=== PATIENT | male | born 1955 | race Caucasian/White ===

== ENCOUNTER 2017-11-20 01:33 | Observation (INO) | payer OTHER ==
[~2017-11-20] VITALS: Ht 170.2 cm; Wt 79.0 kg
[2017-11-20] MEDS ORDERED: SODIUM CHLORIDE 0.9% 1000ML 1,000 ML IV STA (01:55)
[2017-11-20] MEDS ORDERED: HYDR25TA4 PO (01:58)
[2017-11-20] MEDS ORDERED: ASPI325T39 PO (01:58)
[2017-11-20] MEDS ORDERED: METF-384 PO (01:58)
[2017-11-20] MEDS ORDERED: ATOR-24 PO (01:58)
[2017-11-20] MEDS ORDERED: OMEG10007 PO (01:58)
--- NOTE | 2017-11-20 02:02 | EMERGENCY ROOM VISIT NOTE ---
History Report prepared by Deanneibbutch: Thomas Guerrero Under the Supervision of: Dr. Deepthi Selby M.D. First contact with patient: 01:47 Chief Complaint: SYNCOPE Stated Complaint: PASSED OUT AND HIT HEAD History of Present Illness The patient is a 62 year old male who presents to the Emergency Room with complaints of a single syncopal episode at 0030 this morning. The patient states that he was asleep on the couch when he got up to go to the kitchen, noting "heartburn" and he suddenly became lightheaded and passed out. He notes that there is glass in his hair with superficial scalp abrasions after breaking the oven door glass during the fall. He is not sure if he hit his head. He reports having heartburn prior to passing out. He currently has heartburn that is coming and going. He has a history of similar heartburn for years. He denies any recent travel. He denies any history of blood clots or personal history of CAD. He has a family history of CAD. He denies any history of smoking. He states that he feels dry in his mouth. He denies any headache. He notes that he felt lightheaded while here in the ED. He denies any motion or spinning sensations. He denies any history of syncope. He denies any vomiting, diarrhea, back pain, neck pain, or abdominal pain. He recently had a colonoscopy two weeks ago. He denies any history of kidney problems. Source of History: patient Onset: at 0030 this morning Position: other (general ) Quality: other (syncope) Timing: other (episodic ) Associated Symptoms: + LOC, No headache, No neck pain, No vomiting, No abdominal pain, No back pain, No diarrhea Note: He notes lightheadedness and heartburn. He denies any recent trips. He denies any motion or spinning sensations. Review of Systems See HPI for pertinent positives & negatives. A total of 10 systems reviewed and were otherwise negative. Past Medical & Surgical Medical Problems: (1) Diabetes (2) HTN (hypertension) (3) Trigger finger Surgical Problems: (1) H/O hand surgery (2) History of hernia surgery Family History Cancer Diabetes mellitus Heart disease Hypertension Social History Smoking Status: Never Smoker Smokeless Tobacco Use: No Alcohol Use: occasionally Drug Use: none Marital Status: Housing Status: lives with significant other Occupation Status: employed Current/Historical Medications Scheduled Aspirin (Aspirin Ec), 325 MG PO DAILY Atorvastatin (Lipitor), 40 MG PO DAILY Fish Oil ([place]-3), 1 CAP PO DAILY Hydrochlorothiazide (Hctz), 25 MG PO DAILY Metformin Hcl (Glucophage), 1,000 MG PO BID Allergies Coded Allergies: HEIDI Inhibitors (Verified Allergy, Unknown, cough, 11/20/17) Physical Exam Vital Signs Date Time Temp Pulse Resp B/P (MAP) Pulse Ox O2 Delivery O2 Flow Rate FiO2 11/20/17 04:37 103 18 161/92 97 Room Air 11/20/17 04:27 104 16 177/93 97 Room Air 11/20/17 03:45 101 18 155/98 11/20/17 02:46 91 148/89 155/95 154/91 11/20/17 02:21 92 18 150/90 95 Room Air 11/20/17 01:57 86 11/20/17 01:38 36.3 91 18 151/90 97 Room Air Physical Exam Vital signs reviewed. General: Well-appearing, in no significant distress. HEENT: No scleral icterus, PERRLA, neck supple. Several mild abrasions to the scalp. Cardiovascular: Regular rate and rhythm, no extra sounds. Pulmonary: Clear to auscultation bilaterally, normal work of breathing. Abdomen: Soft, nontender, nondistended, positive bowel sounds. Musculoskeletal: Atraumatic, no peripheral edema. Nontender to palpation of the cervical, thoracic and lumbar spines. Neurologic: Patient awake alert and oriented x 3, full strength in all 4 extremities. Cranial nerves 2 through 12 grossly intact. Skin: Warm, dry, no rash Medical Decision & Procedures ER Provider Diagnostic Interpretation: Radiology results as stated below per my review and interpretation: CHEST XR: Normal Radiology results as stated below per my review and radiologist interpretation: CT HEAD: No acute hemorrhage, hydrocephalus, or mass effect. Radiologist: Cindy Mota MD Study ready at 02:18 and initial results transmitted at 02:20 CTA CHEST: No pulmonary embolism. No acute aortic findings. No cardiomegaly. No pericardial effusion. No consolidation or pleural effusion. Radiologist: Cindy Mota MD Study ready at 03:47 and initial results transmitted at 04:09 Laboratory Results Test 11/20/17 01:55 11/20/17 02:50 Immature Granulocyte % (Auto) 0.1 % White Blood Count 8.85 K/uL (4.8-10.8) Red Blood Count 5.17 M/uL (4.7-6.1) Hemoglobin 15.2 g/dL (14.0-18.0) Hematocrit 44.3 % (42-52) Mean Corpuscular Volume 85.7 fL (80-100) Mean Corpuscular Hemoglobin 29.4 pg (25-34) Mean Corpuscular Hemoglobin Concent 34.3 g/dl (32-36) Platelet Count 211 K/uL (130-400) Mean Platelet Volume 10.2 fL (7.4-10.4) Neutrophils (%) (Auto) 73.8 % Lymphocytes (%) (Auto) 17.4 % Monocytes (%) (Auto) 5.9 % Eosinophils (%) (Auto) 2.5 % Basophils (%) (Auto) 0.3 % Neutrophils # (Auto) 6.53 K/uL (1.4-6.5) Lymphocytes # (Auto) 1.54 K/uL (1.2-3.4) Monocytes # (Auto) 0.52 K/uL (0.11-0.59) Eosinophils # (Auto) 0.22 K/uL (0-0.5) Basophils # (Auto) 0.03 K/uL (0-0.2) Immature Granulocyte # (Auto) 0.01 K/uL (0.00-0.02) D-Dimer 3690 ug/L FEU (0-500) Total Bilirubin 0.3 mg/dl (0.2-1) Direct Bilirubin < 0.1 mg/dl (0-0.2) Aspartate Amino Transf (AST/SGOT) 13 U/L (15-37) Alanine Aminotransferase (ALT/SGPT) 29 U/L (12-78) Alkaline Phosphatase 77 U/L (45-117) Total Protein 7.3 gm/dl (6.4-8.2) Albumin 4.0 gm/dl (3.4-5.0) Urine Color YELLOW Urine Appearance CLEAR (CLEAR) Urine pH 5.0 (4.5-7.5) Urine Specific [place] 1.023 (1.000-1.030) Urine Protein NEG (NEG) Urine Glucose (UA) NEG (NEG) Urine Ketones 2+ (NEG) Urine Occult Blood TRACE (NEG) Urine Nitrite NEG (NEG) Urine Bilirubin NEG (NEG) Urine Urobilinogen NEG (NEG) Urine Leukocyte Esterase NEG (NEG) Urine WBC (Auto) 1-5 /hpf (0-5) Urine RBC (Auto) 0-4 /hpf (0-4) Urine Hyaline Casts (Auto) 5-10 /lpf (0-5) Urine Epithelial Cells (Auto) 5-10 /lpf (0-5) Urine Bacteria (Auto) NEG (NEG) Laboratory results per my review. Medications Administered Medications (Trade) Dose Ordered Sig/Grisel Route Start Time Stop Time Status Last Admin Dose Admin Sodium Chloride 1,000 ml @ 125 mls/hr Q8H STAT IV 11/20/17 01:55 11/20/17 06:22 DC 11/20/17 02:48 125 MLS/HR Potassium Chloride (Klor-Con M10) 40 meq NOW STAT PO 11/20/17 04:47 11/20/17 04:51 DC 11/20/17 04:59 40 MEQ ECG Per My Interpretation Indication: syncope Rate (beats per minute): 89 Rhythm: sinus rhythm Findings: 1st degree AV block, nonspecific-ST abn (Inferior), no acute ischemic change, no ectopy ED Course 0152: Past medical records reviewed. The patient was evaluated in room B4B. A complete history and physical examination was performed. 0155: Ordered Sodium Chloride 1,000 ml @ 125 mls/hr IV 0308: I reassessed the patient at this time. The patient agreed to have a CTA. 0429: I [facility] discussed the patient's case. [facility]. 0431: I reassessed the patient at this time. I discussed the results and treatment plan with the patient. I answered all pertaining questions that he had. He expressed understanding and verbalized agreement. The patient will be further evaluated. Medical Decision Differential diagnosis: Etiologies such as vasovagal event, infection, hypoglycemia, electrolyte abnormalities, cardiac sources, intracerebral event, toxicologic, neurologic, as well as others were entertained. This pt was evaluated and appeared to be in no distress. PE is significant for only abrasions to the scalp. EKG is NSR. Pt was hydrated with NSS. Orthostatics are negative. Lab work reveals an elevated ddimer, neg cardiac enzymes. CT head is negative. CXR is clear. CTA of chest was ordered and is negative for PE. Pt was advised of the findings. As he is diabetic with HTN, GERD symptoms and sudden syncopal episode, it is in the pt's best interest to have stay in hospital for further evaluation. Pt and were made aware of the plan and agree. Dr Gillespie was consulted of [facility] hospitalist service. Medication Reconcilliation Current Medication List: was personally reviewed by me Blood Pressure Screening Patient's blood pressure: Elevated blood pressure referred to hospitalist Consults Time Called: [phone] Consulting Physician: [facility]illespie [facility] Return[facility] Call: [phone] [facility]illespie [facility] We discussed the patient's case. The patient will be evaluated by the [facility] Hospital[facility] Group for further management. Impression Primary Impression: Syncope Additional Impression: Chest pain Scribe Attestation The scribe's documentation has been prepared under my direction and personally reviewed by me in its entirety. I confirm that the note above accurately reflects all work, treatment, procedures, and medical decision making performed by me. Departure Information Dispostion Being Evaluated By Hospitalist Referrals Al Quispe M.D.(VIRGEN) (PCP) Patient Instructions My [facility] Health Problem Qualifiers
[2017-11-20 02:15] LABS: BASO % 0.3 %; BASO ABS # 0.03 K/uL (0-0.2); EOS % 2.5 %; EOS ABS # 0.22 K/uL (0-0.5); HEMATOCRIT 44.3 % (42-52); HEMOGLOBIN 15.2 g/dL (14.0-18.0); IG# 0.01 K/uL (0.00-0.02); LYMPH % 17.4 %; LYMPH ABS # 1.54 K/uL (1.2-3.4); MEAN CELL VOLUME 85.7 fL (80-100); MEAN CORPUSCULAR HEMOGLOBIN 29.4 pg (25-34); MEAN CORPUSCULAR HGB CONC 34.3 g/dl (32-36); MEAN PLATELET VOLUME 10.2 fL (7.4-10.4); MONO % 5.9 %; MONO ABS # 0.52 K/uL (0.11-0.59); NEUT % 73.8 %; NEUT ABS # 6.53 K/uL (1.4-6.5); PLATELET COUNT 211 K/uL (130-400); RED CELL DISTRIBUTION WIDTH CV 13.2 % (11.5-14.5); RED CELL DISTRIBUTION WIDTH SD 41.4 fL (36.4-46.3); WHITE BLOOD COUNT 8.85 K/uL (4.8-10.8)
[2017-11-20 02:36] LABS: ALT/SGPT 29 U/L (12-78); AST/SGOT 13 U/L (15-37); BLOOD UREA NITROGEN 11 mg/dl (7-18); CALCIUM 8.9 mg/dl (8.5-10.1); CARBON DIOXIDE 28 mmol/L (21-32); CREATININE 1.01 mg/dl (0.60-1.40); GLUCOSE 144 mg/dl (70-99); SODIUM 139 mmol/L (136-145)
[2017-11-20 02:41] LABS: ALKALINE PHOSPHATASE 77 U/L (45-117); TOTAL PROTEIN 7.3 gm/dl (6.4-8.2)
[2017-11-20] MEDS ORDERED: OPTIRAY 320 IV PRN (03:15)
[2017-11-20] MEDS ORDERED: POTASSIUM CHLORIDE 10 MEQ TABCR PO STA (04:47)
[2017-11-20] MEDS ORDERED: METOPROLOL TARTRATE 25 MG TAB PO ONE (05:04)
[2017-11-20] MEDS ORDERED: ACETAMINOPHEN 325 MG TAB PO PRN (05:15)
[2017-11-20] MEDS ORDERED: ONDANSETRON INJ 2 MG/ML 2 ML VIAL IV PRN (05:15)
[2017-11-20] MEDS ORDERED: DEXTROSE 50% 50 ML SYR IV PRN (05:45)
[2017-11-20] MEDS ORDERED: GLUCAGON FOR INJ 1 MG VIAL SQ PRN (05:45)
[2017-11-20] MEDS ORDERED: IV FLUIDS COMPLETED PRN (05:45)
[2017-11-20] MEDS ORDERED: GLUCOSE 10 TABS/TUBE PO PRN (05:45)
[2017-11-20] MEDS ORDERED: GLUCOSE 40% GEL 15 GM TUBE PO PRN (05:45)
--- NOTE | 2017-11-20 05:45 | HISTORY & PHYSICAL EXAMINATION ---
DATE OF ADMISSION: 11/20/2017 PRIMARY CARE PHYSICIAN: Dr. Quispe. CHIEF COMPLAINT: Syncopal episode. HISTORY OF PRESENT COMPLAINT: He is a 62-year-old male, significant past medical history of diabetes type 2, hyperlipidemia and hypertension, apparently watching TV late in the night yesterday, and when he was about to go to bed, he was going toward the kitchen and all of a sudden he felt dizzy and he ended up falling on the floor. He lost consciousness for a few seconds. He hit the stove in the kitchen with glass front and that was broken. From that point, he was taken to the Emergency Room. When asking question, he complains to have dizziness since the event and the dizziness has been ongoing. He has not had any syncopal episode before and he did not have any warning symptoms except dizziness before the fall. He denies any chest pain, palpitation, any shortness of breath, any headache, blurred vision before the fall, any numbness or tingling, any abdominal pain, nausea or vomiting. Notes he does have reflux symptoms and he did have reflux symptoms later on after the event. In the Emergency Room, he was hemodynamically stable. He was feeling better and apparent test came back negative except D-dimer was high, but CTA was negative. From that point, he was admitted to telemetry unit for continuation of care. PAST MEDICAL HISTORY: Significant for type 2 diabetes, hyperlipidemia and hypertension. PAST SURGICAL HISTORY: Significant for repair of umbilical hernia and repair of recurrent inguinal hernia and vasectomy. FAMILY HISTORY: No significant family history. No diabetes and/or hypertension. Mother though has asthma. SOCIAL HISTORY: He is . He lives with his . He uses alcohol socially but does not smoke. ALLERGIES: TO HEIDI INHIBITOR. MEDICATIONS: As an outpatient, he has been taking fish oil as directed, metformin 1000 mg b.i.d., aspirin 325 mg daily, atorvastatin 40 mg daily and hydrochlorothiazide 25 mg daily. REVIEW OF SYSTEMS: Other systemic review unremarkable except as mentioned in history of present complaint. PHYSICAL EXAMINATION: GENERAL: On examination in the Emergency Room, he was not in any acute distress. VITAL SIGNS: Temperature 36.3, pulse is 91, blood pressure 151/90, saturation 97% on room air. HEENT: Unremarkable. NECK: Supple, no JVD, no bruit. CHEST: Clear to auscultate bilaterally. HEART: S1, S2 regular. ABDOMEN: Soft, benign, nontender, no organomegaly. Bowel sounds present. EXTREMITIES: Negative for any edema. MUSCULOSKELETAL: Did not show any acute arthritis involving any joint. CENTRAL NERVOUS SYSTEM: Alert, awake, oriented x3. No focal sensory and/or motor deficit appreciated. LABORATORY DATA: Noted today white count was 8.85, H&H 15.2/44.3, platelet was 211. Sodium 139, potassium 3.0, chloride 102, carbon dioxide 28, BUN 11, creatinine 1.01, random glucose 144. LFTs normal. Troponin less than 0.015. D-dimer is elevated to 3619. UA examination unremarkable. EKG pending. Chest x-ray, CT of the head and CTA were unremarkable as I was reported. IMPRESSION AND PLAN: 1. Syncopal episode with fall and minor head injury. The patient will be admitted to telemetry unit. He has high blood pressure. The causes could be secondary to high blood pressure and/or dehydration.Cardiac Arrhythmia needs to be ruled out as well. He has not been drinking enough fluids throughout the whole day. He was started on IV fluid, normal saline, and he will have serial cardiac enzymes, echocardiogram and also carotid ultrasound to rule out stenosis. He is going to be evaluated by neurologist while in the hospital. 2. Hypertension. Blood pressure remains on the upper side, may have had very high blood pressure with dizzy spells. We will add metoprolol on top of hydrochlorothiazide. 3. Hypokalemia, likely secondary to hydrochlorothiazide. We will continue hydrochlorothiazide. May have to add replacement of potassium when he goes home. 4. Diabetes type 2, has been on metformin. We will hold metformin in the hospital, put him on sliding scale coverage, check hemoglobin A1c. 5. Esophageal reflux with reflux symptoms. We will give proton pump inhibitor for reflux symptoms. 6. Deep venous thrombosis prophylaxis with Lovenox. 7. Code status. Full code. In my clinical assessment, the beneficiary meets criteria as per CMS for 2-midnight stay in the hospital. MTDD
[2017-11-20 06:15] VITALS: BP 171/96; PULSE 104; TEMP 36.5; O2SAT 95; Ht 170.2 cm; Wt 79.0 kg
[2017-11-20] MEDS: NSS + 20MEQ KCL 1000ML 1,000 ML IV SCH ×2 (06:47→17:27)
[2017-11-20] MEDS ORDERED: PNEUMOCOCCAL ADMINISTRATION CHARGE ONE (07:00)
[2017-11-20] MEDS ORDERED: PNEUMOCOCCAL POLYSACCHARIDES 25 MCG/0.5 ML VIAL/SYR IM. ONE (07:00)
--- NOTE | 2017-11-20 07:54 | DIAGNOSTIC IMAGING REPORT ---
CHEST ONE VIEW PORTABLE CLINICAL HISTORY: syncope COMPARISON STUDY: No previous studies for comparison. FINDINGS: The cardiac and mediastinal contours are normal. There is no evidence of focal pulmonary consolidation. There is no evidence of failure. No pleural effusions are visualized.[ There are minimal linear atelectatic changes at the left lung base. IMPRESSION: No active disease in the chest. Electronically signed by: Chauncey Centeno M.D. 11/20/2017 7:52 AM Dictated Date/Time: 11/20/2017 7:52 AM
--- NOTE | 2017-11-20 08:23 | DIAGNOSTIC IMAGING REPORT ---
CT HEAD WITHOUT CONTRAST (CT) CLINICAL HISTORY: Head pain.] Injury. Syncope. COMPARISON STUDY: No previous studies for comparison. TECHNIQUE: Axial CT of the brain is performed from the vertex to the skull base. IV contrast was not administered for this examination. A dose lowering technique was utilized adhering to the principles of ALARA. CT DOSE: 614.27 mGy.cm FINDINGS: No intra or extra-axial mass lesions are visualized. There is no CT evidence of acute cortical infarction. There is no evidence of midline shift. There is no acute hemorrhage. No calvarial fractures are visualized. There are minimal white matter hypodensities likely on a small vessel basis. There is cerebellar atrophy. There is no evidence of pathologic ventricular dilatation. There is no evidence of acute sinusitis IMPRESSION: No acute intracranial findings Electronically signed by: Chauncey Centeno M.D. 11/20/2017 8:21 AM Dictated Date/Time: 11/20/2017 8:20 AM
[2017-11-20] MEDS: ASPIRIN 325 MG ECTAB PO SCH (08:33)
[2017-11-20] MEDS: PANTOprazole SOD 40 MG TAB PO SCH (08:33)
[2017-11-20] MEDS: HYDROCHLOROTHIAZIDE 25 MG TAB PO SCH (08:34)
[2017-11-20] MEDS: ATORVASTATIN 40 MG TAB PO SCH (08:34)
--- NOTE | 2017-11-20 08:41 | DIAGNOSTIC IMAGING REPORT ---
CT ANGIOGRAM OF THE CHEST CLINICAL HISTORY: Syncope. Possible pulmonary embolism. COMPARISON STUDY: Chest x-ray dated 11/20/2017 TECHNIQUE: Following the IV administration of 91 mL of Optiray-320, CT angiogram of the thorax was performed from the thoracic inlet to the lung bases utilizing the pulmonary embolus protocol. Images are reviewed in the axial, sagittal, and coronal planes. IV contrast was administered without complication. MIP imaging was performed. A dose lowering technique was utilized adhering to the principles of ALARA. CT DOSE: 328.59 mGy.cm FINDINGS: No pathologically enlarged axillary mediastinal or hilar lymph nodes were visualized. There was no evidence of thoracic aortic dilatation. There were no pulmonary artery filling defects to indicate acute pulmonary embolism. No pleural effusions are visualized. There are dependent atelectatic changes. There is no focal pulmonary consolidation to indicate a pneumonia. IMPRESSION: 1. No evidence of acute pulmonary embolism 2. No evidence of focal pulmonary consolidation. Electronically signed by: Chauncey Centeno M.D. 11/20/2017 8:40 AM Dictated Date/Time: 11/20/2017 8:37 AM
[2017-11-20] MEDS: INSULIN ASPART 100 UNITS/ML 3 ML PEN SC SCH ×4 (08:43→21:26)
[2017-11-20] MEDS: ENOXAPARIN 40 MG/0.4 ML SYR SC SCH (08:43)
[2017-11-20] MEDS: POTASSIUM CHLORIDE 20 MEQ TABCR PO SCH ×2 (09:51→17:28)
--- NOTE | 2017-11-20 11:15 | DIAGNOSTIC IMAGING REPORT ---
ULTRASOUND OF THE CAROTID ARTERIES CLINICAL HISTORY: Syncope. Possible carotid or vertebral artery stenosis.. COMPARISON STUDY: None. TECHNIQUE: Real-time, grayscale, and color Doppler sonography of the carotid arteries was performed. Imaging reviewed in the transverse and longitudinal planes. NASCET criteria was utilized for stenosis calcification. FINDINGS: There is mild calcific atherosclerotic plaque present . The peak systolic velocity within the right internal carotid artery is 87 cm/sec. The systolic velocity ratio of right internal to common carotid artery is 1.1. The peak systolic velocity within the left internal carotid artery is 66 cm/sec. The systolic velocity ratio left internal to common carotid artery is 0.6. Antegrade flow is seen in the vertebral arteries. The external carotid arteries are patent. Blood pressure in the right arm measured 155 mm/Hg. Blood pressure in the left arm measured 151 mm/Hg. IMPRESSION: No evidence of hemodynamically significant carotid stenosis. Electronically signed by: Chauncey Centeno M.D. 11/20/2017 11:14 AM Dictated Date/Time: 11/20/2017 11:13 AM
[2017-11-20 11:45] VITALS: BP 151/87; PULSE 84; TEMP 36.7; O2SAT 97
--- NOTE | 2017-11-20 14:01 | NEUROLOGY CONSULTATION ---
DATE OF CONSULTATION: 11/20/2017 REASON FOR CONSULTATION: Syncope. HISTORY OF PRESENT ILLNESS: The patient is a 62-year-old left-handed male with a history of type 2 diabetes, hyperlipidemia and hypertension who was in his usual state of health yesterday. He and his had fallen asleep in the evening after having eaten a meal. He stood up to go to the bathroom, felt vaguely lightheaded and unwell, lost consciousness. He fell backwards, hit his head and broke a glass on an oven. He was out for a few seconds. He was not incontinent. There was no tongue biting. His told him that he looked pale. He has continued to feel mildly diffusely lightheaded upon getting up without any focal neurologic symptoms such as diplopia, dysarthria, or dysphagia. He does have "reflux symptoms" and said the reflux symptoms had been worse that day. There was otherwise no chest pain, palpitation, shortness of breath. On the weekend, he will typically have several drinks. Earlier in the day, he had 2 old fashioned between 4:00 p.m. and 6:00 p.m. and then wine thereafter. He was not in discomfort. He did not feel the bladder was exceptionally full. He has no prior history of syncope or seizure. PAST MEDICAL HISTORY: As above. PAST SURGICAL HISTORY: Umbilical hernia, inguinal hernia and vasectomy. FAMILY HISTORY: No family history of significance. Mother had Parkinson's disease, stroke, UTI. Father hypertension, diabetes, and hyperlipidemia. SOCIAL HISTORY: As above. ALLERGIES: HEIDI INHIBITORS. MEDICATIONS: Have not been changed metformin, aspirin, atorvastatin, HCTZ. Electrocardiogram on admission, sinus rhythm with first degree AV block, rate of 89. CT of the head, noncontrast, which I have reviewed, no acute intracranial findings. Carotid ultrasound, no significant stenosis. White count, H and H and platelet count are normal. D-dimer was elevated. INR 1.0. Chemistry profile: Sodium 139, potassium 3.0, BUN and creatinine 11/0.1, random glucose 144. Transaminases normal. Urinalysis, trace blood, 5-10 hyaline casts and epithelial cells, negative glucose. No significant orthostatic changes in blood pressure are noted. PHYSICAL EXAMINATION: VITAL SIGNS: 36.7, 84, 18, 151/87. GENERAL: He is awake and alert, normal speech and language. Affect appropriate. No carotid bruits. HEART: No heart murmurs. Heart is regular rate and rhythm. NEUROLOGIC: Pupils are equal. Visual mayo are full. There is normal facial sensation and facial symmetry. Speech and language are normal. Tongue is midline without any evidence of biting. Strength is full. There is no drift. Normal rapid alternating movements. Minimal tremor on intention. [id number] normal. Reflexes symmetric. Toes downgoing. No sensory abnormality. IMPRESSION: Syncopal episode, not likely neurologic given the brevity, the absence of accompanying neurologic symptoms and the presence of pallor. I would recommend for the sake of completion an MRI of the brain, MRA and ongoing cardiovascular monitoring. It is certainly possible that the patient could have been orthostatic with standing after having had several drinks; however, I feel this is a diagnosis of exclusion. MTDD
--- NOTE | 2017-11-20 14:26 | ECHOCARDIOGRAM REPORT ---
*NOTICE TO RECEIVING REPUBLICAN AGENCY This information is strictly Confidential and protected under [place] law. [place] law prohibits you from making any further disclosure of this information unless further disclosure is expressly permitted by the written consent of the person to whom it pertains or is authorized by law. A general authorization for the release of medical or other information is not sufficient for this purpose. Hospital accepts no responsibility if the information is made available to any other person, INCLUDING THE PATIENT. Interpretation Summary * Name: OLIVER MARIA Study Date: 11/20/2017 09:52 AM BP: 156/95 mmHg * Patient Location: [facility]\S\N277\S\2 HR: 91 * : 1955 (M/d/yyyy) Gender: Male Height: 66 in * Age: 62 yrs Ethnicity: CA Weight: 173 lb * Ordering Physician: Magda Gillespie * Referring Physician: Self, Referred * Performed By: Chuckie Astorga RDCS * * Reason For Study: Syncope * BSA: 1.9 m2 * All chambers of normal size and function * Normal bi-ventricular function * -- Conclusions -- * Injection of contrast documented no interatrial shunt. * The interatrial septum is intact with no evidence for an atrial septal defect. * All chambers of normal size and function * Normal bi-ventricular function * No significant valvular pathology. Procedure Details * A complete two-dimensional transthoracic echocardiogram was performed (2D, M-mode, Doppler and color flow Doppler). * The study was technically adequate. Left Ventricle * The left ventricle is normal in size. * There is normal left ventricular wall thickness. * Left ventricular systolic function is normal. Right Ventricle * The right ventricle is normal in size and function. * There is normal right ventricular wall thickness. * The right ventricular systolic function is normal. Atria * The left atrial size is normal. * Right atrial size is normal. * The interatrial septum is intact with no evidence for an atrial septal defect. * Injection of contrast documented no interatrial shunt. Mitral Valve * The mitral valve is normal in structure and function. * There is no mitral valve stenosis. * There is no mitral regurgitation noted. Tricuspid Valve * The tricuspid valve is normal in structure and function. * There is trace tricuspid regurgitation. Aortic Valve * The aortic valve is normal in structure and function. * No aortic regurgitation is present. Pulmonic Valve * The pulmonic valve is normal in structure and function. * There is no pulmonic valvular regurgitation. Great Vessels * The aortic root is normal size. * No obvious dissection could be visualized. * The pulmonary artery is normal size. Pericardium/Pleural * There is no pericardial effusion. MMode 2D Measurements and Calculations IVSd 1.1 cm IVSs 1.5 cm LVIDd 4.2 cm LVIDs 2.6 cm LVPWd 1.1 cm LVPWs 1.6 cm IVS/LVPW 1.0 FS 38.8 % EDV(Teich) 77.3 ml ESV(Teich) 23.5 ml EF(Teich) 69.6 % EDV(cubed) 72.5 ml ESV(cubed) 16.6 ml EF(cubed) 77.1 % % IVS thick 36.2 % % LVPW thick 52.1 % LV mass(C)d 149.4 grams LV mass(C)dI 79.5 grams/m\S\2 LV mass(C)s 135.9 grams LV mass(C)sI 72.3 grams/m\S\2 SV(Teich) 53.8 ml SI(Teich) 28.6 ml/m\S\2 SV(cubed) 55.9 ml SI(cubed) 29.7 ml/m\S\2 Ao root diam 3.3 cm Ao root area 8.7 cm\S\2 ACS 1.8 cm LA dimension 3.4 cm asc Aorta Diam 3.4 cm LA/Ao 1.0 LVOT diam 2.1 cm LVOT area 3.5 cm\S\2 LVAd ap4 25.8 cm\S\2 LVLd ap4 9.0 cm EDV(MOD-sp4) 61.4 ml EDV(sp4-el) 62.9 ml LVAs ap4 10.5 cm\S\2 LVLs ap4 6.9 cm ESV(MOD-sp4) 15.1 ml ESV(sp4-el) 13.7 ml EF(MOD-sp4) 75.3 % EF(sp4-el) 78.3 % LVAd ap2 27.4 cm\S\2 LVLd ap2 8.4 cm EDV(MOD-sp2) 74.1 ml EDV(sp2-el) 76.3 ml LVAs ap2 12.7 cm\S\2 LVLs ap2 6.8 cm ESV(MOD-sp2) 21.2 ml ESV(sp2-el) 20.2 ml EF(MOD-sp2) 71.4 % EF(sp2-el) 73.5 % LVLd %diff -7.58 % EDV(MOD-bp) 70.2 ml LVLs %diff -1.30 % ESV(MOD-bp) 17.6 ml EF(MOD-bp) 74.9 % SV(MOD-sp4) 46.2 ml SI(MOD-sp4) 24.6 ml/m\S\2 SV(MOD-sp2) 52.9 ml SI(MOD-sp2) 28.1 ml/m\S\2 SV(MOD-bp) 52.5 ml SI(MOD-bp) 27.9 ml/m\S\2 SV(sp4-el) 49.3 ml SI(sp4-el) 26.2 ml/m\S\2 SV(sp2-el) 56.1 ml SI(sp2-el) 29.8 ml/m\S\2 Doppler Measurements and Calculations MV E max arianna 53.7 cm/sec MV A max arianna 70.9 cm/sec MV E/A 0.76 MV dec time 0.20 sec Ao V2 max 114.6 cm/sec Ao max PG 5.3 mmHg Ao max PG (full) 1.1 mmHg SHOSHANA(V,A) 3.1 cm\S\2 SHOSHANA(V,D) 3.1 cm\S\2 LV V1 max PG 4.2 mmHg LV V1 max 101.9 cm/sec PA V2 max 115.6 cm/sec PA max PG 5.3 mmHg
[2017-11-20 15:49] VITALS: BP_SYST 159; BP_SYST 98; BP_DIAS 71; BP_DIAS 92; PULSE 78; PULSE 82; TEMP 36.2; TEMP 36.5; O2SAT 92; O2SAT 95
--- NOTE | 2017-11-20 16:40 | DIAGNOSTIC IMAGING REPORT ---
MR ANGIOGRAPHY OF THE [place] NO CONTRAST CLINICAL HISTORY: Syncope. Headache. COMPARISON STUDY: None. A 3-D [id number] MR angiographic sequence of the [place] was performed. Both the source and projection images were reviewed. There is no evidence of major intracranial branch occlusion. There is no evidence of intracranial stenosis. There are no lesions suspicious for aneurysm. IMPRESSION: Unremarkable MR angiography of the [place]. Electronically signed by: Chauncey Centeno M.D. 11/20/2017 4:39 PM Dictated Date/Time: 11/20/2017 4:36 PM
[2017-11-20] MEDS ORDERED: GADAVIST IV PRN (17:15)
--- NOTE | 2017-11-20 17:21 | DIAGNOSTIC IMAGING REPORT ---
MR ANGIOGRAPHY OF THE NECK WITHOUT A WITH CONTRAST HISTORY: Syncope. Possible vertebrobasilar stenosis. TECHNIQUE: Edmk-te-uptyci and gadolinium-enhanced MRA of the neck was performed both before and after the intravenous administration of contrast. All measurements were calculated based on NASCET criteria. The patient was administered 7.8 cc of intravenous Gadavist. COMPARISON STUDY: Carotid Doppler ultrasound dated 11/20/2017 FINDINGS: The aortic arch and proximal great vessels are widely patent. There is no significant stenosis, occlusion, or dissection identified within the bilateral common carotid, internal carotid, or vertebral arteries. No evidence of basilar artery stenosis. IMPRESSION: No significant stenosis, occlusion, or dissection identified within the carotid or vertebral arteries. Electronically signed by: Chauncey Centeno M.D. 11/20/2017 5:19 PM Dictated Date/Time: 11/20/2017 5:17 PM
--- NOTE | 2017-11-20 17:24 | DIAGNOSTIC IMAGING REPORT ---
MRI OF THE BRAIN WITHOUT AND WITH IV CONTRAST CLINICAL HISTORY: syncope COMPARISON STUDY: Noncontrast head CT dated 11/20/2017 TECHNIQUE: MRI of the brain was performed from the vertex to the skull base utilizing various T1 and T2 weighted sequences. Following the IV administration of 7.8 mL of Gadavist contrast, additional enhanced images were obtained. FINDINGS: Sagittal T1, axial diffusion, proton density and T2 weighted axial, coronal FLAIR, and pre and post axial T1-weighted images were acquired. These were supplemented with post gadolinium coronal T1 weighted images. No intra or extra-axial mass lesions are visualized. Axial diffusion-weighted images reveal no evidence of acute or subacute infarction. There is no evidence of ventricular dilatation. Proton density T2-weighted and FLAIR images reveal scattered foci of increased T2 signal within the white matter, likely on a small vessel basis. There is mild cerebellar atrophy. There are no abnormal flow voids. There is no evidence of pathologic enhancement. IMPRESSION: Mild cerebellar atrophy. Otherwise normal MRI of the brain for age. Electronically signed by: Chauncey Centeno M.D. 11/20/2017 5:23 PM Dictated Date/Time: 11/20/2017 5:20 PM
[2017-11-20 19:04] VITALS: BP 152/83; PULSE 79; TEMP 36.4; O2SAT 97
[2017-11-20] MEDS ORDERED: INSULIN GLARGINE SOLOSTAR 100 UNITS/ML 3 ML PEN SC SCH (21:00)
[2017-11-20] MEDS: METOPROLOL TARTRATE 25 MG TAB PO SCH (21:27)
--- NOTE | 2017-11-20 21:52 | Progress Note ---
Medicine Progress Note Date & Time of Visit: Nov 20, 2017 at 08:31. Subjective 62-year-old man presents status post fall and syncope at home. He reports having dinner then sitting and watching TV with his . He states he fell asleep in his chair. He then walked into the kitchen after waking up felt lightheaded, and fell backwards losing consciousness with his head hitting the glass door of the other and shattering the glass. When he woke up he felt "woozy", however he was clear of where he was and what had happened. This was despite him having to lay on the floor for about 10 minutes. He reports feeling lightheaded and dizzy prior to the fall. Objective Last 8 Hrs Date Time Temp Pulse Resp B/P (MAP) Pulse Ox O2 Delivery O2 Flow Rate FiO2 11/20/17 06:15 36.5 104 18 171/96 95 Room Air 11/20/17 05:32 36.3 103 18 156/95 97 11/20/17 05:29 103 11/20/17 04:37 103 18 161/92 97 Room Air 11/20/17 04:27 104 16 177/93 97 Room Air 11/20/17 03:45 101 18 155/98 11/20/17 02:46 91 148/89 155/95 154/91 11/20/17 02:21 92 18 150/90 95 Room Air 11/20/17 01:57 86 11/20/17 01:38 36.3 91 18 151/90 97 Room Air Physical Exam: GEN: WNWD, in no acute distress, alert and appropriate HEENT: NC/AT, PERRL, normal sclerae, EOMI, MMM CARDIO: reg rate, S1/2 heard without m/g/r LUNGS: CTA bilaterally, no crackles, rales or wheezes, good diaphragmatic excursion ABD: soft, non-tender, non-distended, no rebound or guarding EXTREMITY: RP and DP palpable 2+ bilat, no LE swelling or edema, extremities are warm and well-perfused NEURO: CN 2-12 intact, sensation intact throughout, coordination intact, no focal deficits. MUSC: 5/5 strength throughout, no focal deficits SKIN: warm and dry Laboratory Results: Last 24 Hours Test 11/20/17 01:55 11/20/17 02:50 11/20/17 05:48 11/20/17 07:04 White Blood Count 8.85 K/uL Red Blood Count 5.17 M/uL Hemoglobin 15.2 g/dL Hematocrit 44.3 % Mean Corpuscular Volume 85.7 fL Mean Corpuscular Hemoglobin 29.4 pg Mean Corpuscular Hemoglobin Concent 34.3 g/dl Platelet Count 211 K/uL Mean Platelet Volume 10.2 fL Neutrophils (%) (Auto) 73.8 % Lymphocytes (%) (Auto) 17.4 % Monocytes (%) (Auto) 5.9 % Eosinophils (%) (Auto) 2.5 % Basophils (%) (Auto) 0.3 % Neutrophils # (Auto) 6.53 K/uL Lymphocytes # (Auto) 1.54 K/uL Monocytes # (Auto) 0.52 K/uL Eosinophils # (Auto) 0.22 K/uL Basophils # (Auto) 0.03 K/uL RDW Standard Deviation 41.4 fL RDW Coefficient of Variation 13.2 % Immature Granulocyte % (Auto) 0.1 % Immature Granulocyte # (Auto) 0.01 K/uL D-Dimer 3690 ug/L FEU Sodium Level 139 mmol/L Potassium Level 3.0 mmol/L Chloride Level 102 mmol/L Carbon Dioxide Level 28 mmol/L Anion Gap 9.0 mmol/L Blood Urea Nitrogen 11 mg/dl Creatinine 1.01 mg/dl Est Creatinine Clear Calc Drug Dose 75.8 ml/min Estimated GFR () 92.6 Estimated GFR (Non- 79.9 BUN/Creatinine Ratio 11.0 Random Glucose 144 mg/dl Calcium Level 8.9 mg/dl Magnesium Level 1.9 mg/dl Total Bilirubin 0.3 mg/dl Direct Bilirubin < 0.1 mg/dl Aspartate Amino Transf (AST/SGOT) 13 U/L Alanine Aminotransferase (ALT/SGPT) 29 U/L Alkaline Phosphatase 77 U/L Troponin I < 0.015 ng/ml < 0.015 ng/ml Total Protein 7.3 gm/dl Albumin 4.0 gm/dl Urine Color YELLOW Urine Appearance CLEAR Urine pH 5.0 Urine Specific [place] 1.023 Urine Protein NEG Urine Glucose (UA) NEG Urine Ketones 2+ Urine Occult Blood TRACE Urine Nitrite NEG Urine Bilirubin NEG Urine Urobilinogen NEG Urine Leukocyte Esterase NEG Urine WBC (Auto) 1-5 /hpf Urine RBC (Auto) 0-4 /hpf Urine Hyaline Casts (Auto) 5-10 /lpf Urine Epithelial Cells (Auto) 5-10 /lpf Urine Bacteria (Auto) NEG Prothrombin Time 10.3 SECONDS Prothromb Time International Ratio 1.0 Assessment & Plan 62-year-old man presents status post fall and syncope at home. He reports having dinner then sitting and watching TV with his . He states he fell asleep in his chair. He then walked into the kitchen after waking up felt lightheaded, and fell backwards losing consciousness with his head hitting the glass door of the other and shattering the glass. When he woke up he felt "woozy", however he was clear of where he was and what had happened. This was despite him having to lay on the floor for about 10 minutes. He reports feeling lightheaded and dizzy prior to the fall. 1. Syncope-likely secondary to orthostatic or vasovagal episode after recently awakening from sleep. Neurology was consulted. No overnight events on telemetry. Workup so far has been negative to include lab work, carotid ultrasound, CTA of the chest, CT head, and chest x-ray. The patient currently has no focal neurologic deficits and is feeling well. He has no history of seizures. Appreciate neurology recommendations. 2. Hypertension-on HCTZ at home. Metoprolol was added as blood pressure was elevated on arrival to ER. Will DC this now and continue HCTZ. 3. Hypokalemia-replace and repeat PRP in a.m. 4. Diabetes type 2-hold metformin and use insulin replacement in the hospital, currently controlled. A1c pending. 5. Heartburn symptoms-proton pump inhibitors started. DVT prophylaxis-Lovenox Full code Disposition-observation overnight. Saige Galloway DO Hospitalist Consultants: NeurologyJosephine Current Inpatient Medications: Current Inpatient Medications Medications (Trade) Dose Ordered Sig/Grisel Route Start Time Stop Time Status Last Admin Dose Admin Ioversol (Optiray 320) 100 ml UD PRN IV 11/20/17 03:15 11/24/17 03:14 Potassium Chloride/Sodium Chloride 1,000 ml @ 100 mls/hr Q10H IV 11/20/17 07:00 12/20/17 06:59 11/20/17 06:47 100 MLS/HR Enoxaparin Sodium (Lovenox Inj) 40 mg Q24H SC 11/20/17 09:00 12/20/17 08:59 Acetaminophen (Tylenol Tab) 650 mg Q4H PRN PO 11/20/17 05:15 12/20/17 05:14 Ondansetron HCl (Zofran Inj) 4 mg Q6H PRN IV 11/20/17 05:15 12/20/17 05:14 Aspirin (Ecotrin Tab) 325 mg DAILY PO 11/20/17 09:00 12/20/17 08:59 Atorvastatin Calcium (Lipitor Tab) 40 mg DAILY PO 11/20/17 09:00 12/20/17 08:59 Hydrochlorothiazide (Hydrochlorothiazide Tab) 25 mg DAILY PO 11/20/17 09:00 12/20/17 08:59 Metoprolol Tartrate (Lopressor Tab) 25 mg BID PO 11/20/17 21:00 12/20/17 20:59 Insulin Aspart (novoLOG ASPART) SLIDING SCALE G... ACHS SC 11/20/17 06:30 12/20/17 06:59 Pantoprazole Sodium (Protonix Tab) 40 mg QAM PO 11/20/17 09:00 12/20/17 08:59 Miscellaneous (Iv Fluids Completed) 1 ea PRN PRN N/A 11/20/17 05:45 11/20/18 05:44 Glucose (Glucose 40% Gel) 15-30 GRAMS 15 GRAMS... UD PRN PO 11/20/17 05:45 12/20/17 05:44 Glucose (Glucose Chew Tab) 4-8 Tablets 4 Tabl... UD PRN PO 11/20/17 05:45 12/20/17 05:44 Dextrose (Dextrose 50% 50ML Syringe) 25-50ML OF 50% DW IV FOR... UD PRN IV 11/20/17 05:45 12/20/17 05:44 Glucagon (Glucagon Inj) 1 mg UD PRN SQ 11/20/17 05:45 12/20/17 05:44 Potassium Chloride (Klor-Con Tab) 40 meq Q6H PO 11/20/17 08:30 11/20/17 14:31 UNV
[2017-11-20 23:59] VITALS: BP 159/83; PULSE 59; TEMP 36.6; O2SAT 97
[2017-11-21] MEDS: NSS + 20MEQ KCL 1000ML 1,000 ML IV SCH (03:40)
[2017-11-21 04:22] VITALS: BP 118/72; PULSE 61; TEMP 36.8; O2SAT 97
[2017-11-21 04:56] LABS: HEMATOCRIT 39.1 % (42-52); MEAN CELL VOLUME 87.1 fL (80-100); MEAN CORPUSCULAR HGB CONC 33.2 g/dl (32-36); MEAN PLATELET VOLUME 9.9 fL (7.4-10.4); PLATELET COUNT 189 K/uL (130-400); RED CELL DISTRIBUTION WIDTH CV 13.5 % (11.5-14.5); RED CELL DISTRIBUTION WIDTH SD 42.9 fL (36.4-46.3); WHITE BLOOD COUNT 7.31 K/uL (4.8-10.8)
[2017-11-21 05:32] LABS: CALCIUM 8.2 mg/dl (8.5-10.1); CREATININE 0.92 mg/dl (0.60-1.40); POTASSIUM 3.7 mmol/L (3.5-5.1)
[2017-11-21 06:51] LABS: HEMOGLOBIN A1C 7.4 % (4.5-5.6)
[2017-11-21 07:31] VITALS: BP 136/80; PULSE 60; TEMP 36.6; O2SAT 96
[2017-11-21] MEDS: METOPROLOL TARTRATE 25 MG TAB PO SCH (08:43)
[2017-11-21] MEDS: ATORVASTATIN 40 MG TAB PO SCH (08:43)
[2017-11-21] MEDS: PANTOprazole SOD 40 MG TAB PO SCH (08:43)
[2017-11-21] MEDS: HYDROCHLOROTHIAZIDE 25 MG TAB PO SCH (08:45)
[2017-11-21] MEDS: ASPIRIN 325 MG ECTAB PO SCH (08:45)
[2017-11-21] MEDS: ENOXAPARIN 40 MG/0.4 ML SYR SC SCH (08:45)
[2017-11-21] MEDS: INSULIN ASPART 100 UNITS/ML 3 ML PEN SC SCH ×2 (08:47→13:06)
[2017-11-21 11:14] VITALS: BP 131/93; PULSE 66; TEMP 36.5; O2SAT 97
--- NOTE | 2017-11-21 13:58 | Discharge Summary ---
Discharge Summary Date of Service Nov 21, 2017. Discharge Summary Admission Date: Nov 20, 2017 at 05:03 Discharge Date: Nov 21, 2017 Discharge Disposition: Home Principal Diagnosis: Syncope DMII HTN Procedures: TTE EEG Vaccinations: None. Consultations: Neurology-Mc Pending Studies/Follow-Up: see instructions below. Medication Reconciliation Continued Medications: Aspirin (Aspirin Ec) 325 Mg Tab 325 MG PO DAILY Atorvastatin (Lipitor) 40 Mg Tab 40 MG PO DAILY, TAB Fish Oil ([place]-3) 1 Ea Cap 1 CAP PO DAILY, CAP Hydrochlorothiazide (Hctz) 25 Mg Tab 25 MG PO DAILY, TAB Metformin Hcl (Glucophage) 1,000 Mg Tab 1000 MG PO BID, TAB Admission Information HPI (per Admitting provider): HISTORY OF PRESENT COMPLAINT: He is a 62-year-old male, significant past medical history of diabetes type 2, hyperlipidemia and hypertension, apparently watching TV late in the night yesterday, and when he was about to go to bed, he was going toward the kitchen and all of a sudden he felt dizzy and he ended up falling on the floor. He lost consciousness for a few seconds. He hit the stove in the kitchen with glass front and that was broken. From that point, he was taken to the Emergency Room. When asking question, he complains to have dizziness since the event and the dizziness has been ongoing. He has not had any syncopal episode before and he did not have any warning symptoms except dizziness before the fall. He denies any chest pain, palpitation, any shortness of breath, any headache, blurred vision before the fall, any numbness or tingling, any abdominal pain, nausea or vomiting. Notes he does have reflux symptoms and he did have reflux symptoms later on after the event. In the Emergency Room, he was hemodynamically stable. He was feeling better and apparent test came back negative except D-dimer was high, but CTA was negative. From that point, he was admitted to telemetry unit for continuation of care. Physical Exam (per Admitting): PHYSICAL EXAMINATION: GENERAL: On examination in the Emergency Room, he was not in any acute distress. VITAL SIGNS: Temperature 36.3, pulse is 91, blood pressure 151/90, saturation 97% on room air. HEENT: Unremarkable. NECK: Supple, no JVD, no bruit. CHEST: Clear to auscultate bilaterally. HEART: S1, S2 regular. ABDOMEN: Soft, benign, nontender, no organomegaly. Bowel sounds present. EXTREMITIES: Negative for any edema. MUSCULOSKELETAL: Did not show any acute arthritis involving any joint. CENTRAL NERVOUS SYSTEM: Alert, awake, oriented x3. No focal sensory and/or motor deficit appreciated. Hospital Course 62-year-old man presents status post fall and syncope at home. He reports having dinner then sitting and watching TV with his . He states he fell asleep in his chair. He then walked into the kitchen after waking up felt lightheaded, and fell backwards losing consciousness with his head hitting the glass door of the other and shattering the glass. When he woke up he felt "woozy", however he was clear of where he was and what had happened. This was despite him having to lay on the floor for about 10 minutes. He reports feeling lightheaded and dizzy prior to the fall. 1. Syncope-likely secondary to orthostatic or vasovagal episode after recently awakening from sleep. Neurology was consulted. No overnight events on telemetry during hospitalization. Workup so far has been negative to include lab work, carotid ultrasound, CTA of the chest, CT head, and chest x-ray. The patient currently has no focal neurologic deficits and is feeling well. He has no history of seizures. Brain MRI/MRA of head and neck as well as EEG were all performed and normal. 2. Hypertension-on HCTZ at home. Metoprolol was added as blood pressure was elevated on arrival to ER. Will DC this now and continue HCTZ. 3. Hypokalemia-replaced 4. Diabetes type 2-hold metformin and use insulin replacement in the hospital, currently controlled. 5. Heartburn symptoms-proton pump inhibitors started. DVT prophylaxis-Lovenox Full code Disposition-to home Saige Galloway DO Hospitalist Total time spent on discharge = 60 minutes This includes examination of the patient, discharge planning, medication reconciliation, and communication with other providers. Discharge Instructions [facility] [address] [place] [address] Discharge Medical Patient Name: Wilfredo Winters Unit Number: [id number] Date of : 1955 Patient Status: Admitted Inpatient (obs) Attending Doctor: Saige Galloway DO DI: Medical v5 Discharge Instructions Date of Service Nov 21, 2017. Admission Reason for Admission: Syncope Discharge Discharge Diagnosis / Problem: Syncope Discharge Goals Goal(s): Prevent Disease Progression Activity Recommendations Activity Limitations: per Instructions/Follow-up section . Instructions / Follow-Up Instructions / Follow-Up Please continue all medications as instructed. You have a hospital follow-up with Dr. Quispe on 11/22 at 12:55 PM. Please bring all paperwork from hospital discharge with you to this appointment. Please note it is recommended that a Zio patch be ordered for you for 14 days. This will need to be ordered through Dr. Quispe's office. The purpose of this patch will be to monitor your heart for any underlying arrhythmias not seen in the hospital which may have caused your syncopal event. It was a pleasure taking care of you! Call if you have any questions or problems. You can reach a [facility] hospitalist on duty at [facility] 24 hours a day by calling [phone]. Take care of yourself. Saige Galloway DO [facility] Hospitalist Current Hospital Diet Patient's current hospital diet: AHA Diet (Heart Healthy), Diabetes Type 2 Diet Discharge Diet Recommended Diet: AHA Diet (Heart Healthy), Diabetes Type 2 Diet Procedures Procedures Performed: TTE Pending Studies Studies pending at discharge: no Laboratory Results Hemoglobin A1c Test 11/21/17 04:34 Range/Units Estimated Average Glucose 166 mg/dl Hemoglobin A1c 7.4 H 4.5-5.6 % Medical Emergencies . Who to Call and When: Medical Emergencies: If at any time you feel your situation is an emergency, please call 911 immediately. . Non-Emergent Contact Non-Emergency issues call your: Primary Care Provider . . "Provider Documentation" section prepared by Saige Galloway. . Additional Copies To Al Quispe M.D. ([facility])
[2017-11-21 14:58] VITALS: BP 106/67; PULSE 94; TEMP 36.8; O2SAT 90
--- NOTE | 2017-11-23 15:16 | ELECTROENCEPHALOGRAPH REPORT ---
I requested this. CLINICAL DIAGNOSES: Syncope, question seizures. EEG DIAGNOSIS: Essentially normal during wakefulness. DESCRIPTION OF TRACING: This EEG was done as a bedside recording and is of excellent technical quality with few or no muscle or movement artifacts. A simultaneous video analysis of patient movement and behavior was obtained. Photic stimulation was performed. Hyperventilation was not. Drowsiness and light sleep were not recorded. Under these conditions, there is evidence for a normal background rhythm in the alpha range of up to 9-10 Hz in maximum frequency and up to 30 microvolts of maximum amplitude. This is maximum in posterior head regions and bilaterally symmetrical. Polymorphic mid frequency theta activity is seen over all head regions without clear focal or regional predominance. Anterior head region maximum bilaterally symmetrical low voltage fast activity in the beta range is present. Photic stimulation provokes modest driving response without a photomyogenic or photoparoxysmal component. At no time during the waking tracing is there evidence for potentially epileptogenic activity in the form of polyspike or spike wave bursts, focal sharp waves or focal spikes. INTERPRETATION: This EEG is essentially normal during wakefulness without evidence for focal or generalized encephalopathy and without evidence for potentially epileptogenic activity.
== END 2017-11-21 15:00 | disposition home or self-care (01) ==
LOC: C.EDB 01:35 → C.MED 05:03 → ENRESERV 05:21 → C.MED 11-21 07:45
PROVIDERS: ADMIT Internal Medicine; ATTEND Hospitalist
DX: R55 Syncope and collapse (principal); E11.9 Type 2 diabetes mellitus without complications; I10 Essential (primary) hypertension; E78.5 Hyperlipidemia, unspecified; Z79.4 Long term (current) use of insulin; Z79.899 Other long term (current) drug therapy